=== PATIENT | female | born 1990 | race Caucasian/White ===

== ENCOUNTER 2019-10-09 17:17 | Emergency (ER) | payer BC ==
[2019-10-09] MEDS ORDERED: methylPREDNISolone Sodium Succinate 125 MG/2 ML SDV IM ONE (17:53)
--- NOTE | 2019-10-09 18:00 | EDM.PDOC ---
ED HPI GENERAL MEDICAL PROBLEM - General Chief Complaint: Skin Complaint Stated Complaint: RASH Time Seen by Provider: 10/09/19 17:35 Source of Information: Reports: Patient History Limitations: Reports: No Limitations - History of Present Illness INITIAL COMMENTS - FREE TEXT/NARRATIVE: 29 YO WF PRESENTS TO ER WITH RASH X 4 DAYS. PT REPORTS SHE WAS CAMPING THIS WEEKEND AND THINKS SHE WAS EXPOSED TO [facility]ISON [facility]. PT REPORTS RASH IS ON UPPER AND LOWER EXTREMITIES BUT AFFECTING HER INNER THIGHS MOST SIGNIFICANTLY. PT DENIES FEVER/CHILLS, NO NAUSEA/VOMITING, NO SHORTNESS OF BREATH OR DIFFICULTY SWALLOWING. PT DENIES ANY KNOWN SICK EXPOSURES OR ANYONE ELSE WITH RASH. PT STATES SHE'S TRIED BENADRYL, CALAMINE LOTION, HYDROCORTISONE CREAM WITHOUT MUCH IMPROVEMENT PROMPTING ER EVALUATION. Duration: Day(s): (4) Location: Reports: Upper Extremity, Left, Upper Extremity, Right, Lower Extremity, Left, Lower Extremity, Right Quality: Reports: Other (ITCHY) Severity: Moderate Improves with: Reports: None Worsens with: Reports: None Associated Symptoms: Reports: No Other Symptoms, Rash - Related Data Allergies Allergy/AdvReac Type Severity Reaction Status Date / Time No Known Allergies Allergy Verified 10/09/19 17:41 Home Meds: Home Meds Norethindrone [Norethindrone Acetate] 5 mg PO DAILY 10/09/19 [History] Phentermine HCl 37.5 mg PO DAILY 10/09/19 [History] predniSONE [Prednisone] 20 mg PO DAILY #15 tablet 10/09/19 [Rx] Past Medical History 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: Endocrine/Metabolic History: Reports: Obesity/BMI 30+ Social & Family History - Family History Family Medical History: Noncontributory - Recreational Drug Use Recreational Drug Use: No ED ROS GENERAL - Review of Systems Review Of Systems: See Below Constitutional: Reports: No Symptoms HEENT: Reports: No Symptoms Respiratory: Reports: No Symptoms Cardiovascular: Reports: No Symptoms Endocrine: Reports: No Symptoms GI/Abdominal: Reports: No Symptoms : Reports: No Symptoms Musculoskeletal: Reports: No Symptoms Skin: Reports: Rash Neurological: Reports: No Symptoms Psychiatric: Reports: No Symptoms Hematologic/Lymphatic: Reports: No Symptoms ED EXAM, SKIN/RASH Exam: See Below Exam Limited By: No Limitations General Appearance: Alert, WD/WN, No Apparent Distress Throat/Mouth: Normal Inspection, Normal Lips, Normal Teeth, Normal Gums, Normal Oropharynx, Normal Voice, No Airway Compromise Head: Atraumatic, Normocephalic Neck: Normal Inspection, Supple, Non-Tender, Full Range of Motion Respiratory/Chest: No Respiratory Distress, Lungs Clear, Normal Breath Sounds, No Accessory Muscle Use, Chest Non-Tender Cardiovascular: Normal Peripheral Pulses, Regular Rate, Rhythm, No Edema, No Gallop, No JVD, No Murmur, No Rub GI/Abdominal: Normal Bowel Sounds, Soft, Non-Tender, No Organomegaly, No Distention, No Abnormal Bruit, No Mass Back Exam: Normal Inspection, Full Range of Motion, NT Neurological: Alert, Oriented, CN II-XII Intact, Normal Cognition, Normal Gait, Normal Reflexes, No Motor/Sensory Deficits Psychiatric: Normal Affect, Normal Mood Skin: Warm, Dry Location, Skin: Upper Extremity, Right, Upper Extremity, Left, Lower Extremity, Right, Lower Extremity, Left Characteristics: Papular, Vesicular Associated features: Crusting, Weeping Course - Vital Signs Last Recorded V/S: Last Vital Signs Temp 36.2 C 10/09/19 17:30 Pulse 79 10/09/19 17:30 Resp 20 10/09/19 17:30 BP 125/76 10/09/19 17:30 Pulse Ox 100 10/09/19 17:30 - Orders/Labs/Meds Orders: Active Orders 24 hr Category Date Time Status methylPREDNISolone Sod Succ [Solu-MEDROL] Med 10/09/19 17:53 Once 125 mg IM ONETIME ONE Departure - Departure Time of Disposition: 18:00 Disposition: Home, Self-Care 01 Condition: Good Clinical Impression: Contact dermatitis Qualifiers: Contact dermatitis type: allergic Contact dermatitis trigger: non-food plants Qualified Code(s): L23.7 - Allergic contact dermatitis due to plants, except food - Discharge Information Prescriptions: predniSONE [Prednisone] 20 mg PO DAILY #15 tablet Instructions: Poison Emma Dermatitis Referrals: Jeet Padron NP [Primary Care Provider] - Additional Instructions: 1. DISCHARGE HOME 2. PREDNISONE 60MG DAILY WITH FOOD X 5 DAYS 3. CONTINUE BENADRYL EVERY 6 HOURS AND CALAMINE LOTION TO AFFECTED AREAS 4. RETURN TO ER FOR WORSENING SYMPTOMS 5. FOLLOW UP WITH PCP IF NO IMPROVEMENT NEXT 2-3 DAYS Sepsis Event Note (ED) - Evaluation Sepsis Screening Result: No Definite Risk - Focused Exam Vital Signs: Vital Signs Temp Pulse Resp BP Pulse Ox 10/09/19 17:30 36.2 C 79 20 125/76 100 - My Orders Last 24 Hours: My Active Orders 10/09/19 17:53 methylPREDNISolone Sod Succ [Solu-MEDROL] 125 mg IM ONETIME ONE - Assessment/Plan Last 24 Hours: My Active Orders 10/09/19 17:53 methylPREDNISolone Sod Succ [Solu-MEDROL] 125 mg IM ONETIME ONE Assessment:: 1. CONTACT DERMATITIS Plan: 1. DISCHARGE HOME 2. PREDNISONE 60MG DAILY WITH FOOD X 5 DAYS 3. CONTINUE BENADRYL EVERY 6 HOURS AND CALAMINE LOTION TO AFFECTED AREAS 4. RETURN TO ER FOR WORSENING SYMPTOMS 5. FOLLOW UP WITH PCP IF NO IMPROVEMENT NEXT 2-3 DAYS
== END 2019-10-09 18:05 | disposition home or self-care (01) ==
LOC: KA.ED 17:17
DX: L23.7 Allergic contact dermatitis due to plants, except food (principal); E66.9 Obesity, unspecified; Z68.35 Body mass index [BMI] 35.0-35.9, adult
CPT/HCPCS: 96372; 99282; 99283; J2930

== ENCOUNTER 2021-03-05 17:52 | Emergency (ER) | payer BC | END 2021-03-05 19:00 | disposition home or self-care (01) | LOC: KA.ED 17:52 | DX: U07.1 COVID-19 (principal) | CPT/HCPCS: 87081; 87430; 99283; U0002 ==

== ENCOUNTER 2023-03-23 09:35 | Emergency (ER) | payer BC ==
[2023-03-23] MEDS: Sodium Chloride 0.9% 250 ML IV SCH (10:05)
[2023-03-23] MEDS: Ciprofloxacin 0.3% Ophth Soln 5 ML Bottle EYERT SCH (10:29)
== END 2023-03-23 10:40 | disposition home or self-care (01) ==
LOC: KA.ED 09:35
DX: H57.89 Other specified disorders of eye and adnexa (principal); E66.9 Obesity, unspecified; Z68.41 Body mass index [BMI] 40.0-44.9, adult
CPT/HCPCS: 99283; A9270-GY; J7050